=== PATIENT | male | born 1970 | race Hispanic/Latino ===

== ENCOUNTER 2018-03-12 22:29 | Emergency (ER) | payer BC ==
--- NOTE | 2018-03-12 23:08 | RAD ---
LEFT FOOT THREE VIEWS: HISTORY: A 47-year-old male with a history of left foot pain following an injury after a trailer tongue droppe d on his foot. FINDINGS: There is some soft tissue swelling anteriorly over the forefoot region. No evidence for acute fractu re or dislocation. IMPRESSION: Anterior soft tissue swelling without fracture or dislocation. POS: [facility]
== END 2018-03-12 23:36 | disposition home or self-care (01) ==
LOC: SCSER 22:29
DX: S90.32XA Contusion of left foot, initial encounter (principal); W20.8XXA Other cause of strike by thrown, projected or falling object, initial encounter

== ENCOUNTER 2021-07-30 12:46 | Outpatient (CLI) | payer OTHER | END 2021-07-30 12:47 | disposition home or self-care (01) | LOC: TBSIIMAG 12:46 | PROVIDERS: ATTEND Neurological Surgery | DX: M54.5 Low back pain (principal); M48.061 Spinal stenosis, lumbar region without neurogenic claudication; M51.26 Other intervertebral disc displacement, lumbar region; M51.27 Other intervertebral disc displacement, lumbosacral region; Q05.7 Lumbar spina bifida without hydrocephalus | CPT/HCPCS: 72148 ==

== ENCOUNTER 2023-08-15 21:26 | Emergency (ER) | payer BC ==
[~2023-08-15 21:26] MED LIST: Iopamidol 370 76% 100 ML VIAL ONE
[2023-08-15 22:21] LABS: #Eosinphils 0.1 thou/uL (0.0-0.7); #Monocytes 0.8 thou/uL (0.11-0.59); #Neutrophils 5.5 thou/uL (1.40-6.50); %Basophils 0.2 % (0.0-1.0); %Eosinophils 0.7 % (0.0-10.0); %Lymphocytes 24.7 % (21.0-51.0); %Monocytes 8.9 % (0.0-10.0); %Neutrophils 65.1 % (42.0-75.0); Hematocrit 46.3 % (42.0-52.0); Mean Corpuscular HGB CONC 34.6 g/dL (32.0-36.0); Mean Corpuscular Volume 89.7 fl (78.0-98.0); Mean Platelet Volume 9.5 fL (7.4-10.4); Platelet Count 251 10x3/uL (130-400); Red Blood Cell (RBC) Count 5.16 mill/uL (4.70-6.10); White Blood Cell (WBC) Count 8.5 10x3/uL (4.8-10.8)
[2023-08-15 22:46] LABS: ALT (SGPT) 67 U/L (8-55); AST (SGOT) 42 U/L (5-34); Albumin 5.1 g/dL (3.5-5.0); Alkaline Phosphatase 91 U/L (40-110); Anion Gap 16 mmol/L (10-20); BUN (Urea Nitrogen) 18 mg/dL (8.4-25.7); Bilirubin, Total 0.6 mg/dL (0.2-1.2); Calc. Creatinine Clearance 0 mL/min (70-130); Carbon Dioxide 26 mmol/L (22-29); Chloride 103 mmol/L (98-107); Estimated GFR 61; Glucose 90 mg/dL (70-105); Potassium 3.8 mmol/L (3.5-5.1); Protein, Total 8.1 g/dL (6.0-8.3); Sodium 141 mmol/L (136-145)
[2023-08-15 23:47] LABS: Bacteria/HPF None Seen HPF (None Seen); Bilirubin Negative (Negative); Blood, Urine Negative (Negative); CAUTI Indications for Culture < 2yrs of age; Clarity Clear (Clear); Glucose, Urine (Dipstick) Normal (Negative); Ketone, Urine Trace mg/dL (Negative); Leukocyte Negative Leu/uL (Negative); Nitrite Negative (Negative); Protein, Urine (Dipstick) 20 mg/dL (Neg-Trace); RBC/HPF 0-3 HPF (0-3); Specific Gravity, Urine 1.036 (1.002-1.036); Squamous Epithelial None Seen HPF (0-3); Urobilinogen Normal mg/dL (Less than 2); WBC/HPF 0-3 HPF (0-3); pH, Urine 5.5 (5.0-9.0)
== END 2023-08-16 01:44 | disposition home or self-care (01) ==
LOC: ERS 21:26
DX: R10.31 Right lower quadrant pain (principal)
CPT/HCPCS: 36415; 74177; 80053; 81001; 85025; Q9967